=== PATIENT | male | born 1950 ===

== ENCOUNTER → 2019-09-13 06:00 | Outpatient (CLI) | payer OTHER ==
[~2019-09-13] VITALS: Ht 170.2 cm; Wt 90.7 kg
[~2019-09-13 06:00] MED LIST: SYNTHROID75 MCG PO
== END | disposition home or self-care (01) ==
LOC: LAB 06:00 → O/R 09-19 07:30 → SURH 09-19 07:30 → EDSTATUS 09-19 07:30 → SURH 09-19 10:00
DX: M17.11 Unilateral primary osteoarthritis, right knee (principal); Z01.818 Encounter for other preprocedural examination